=== PATIENT | male | born 1980 | race Caucasian/White ===

== ENCOUNTER 2021-04-22 15:45 | Emergency (ER) | payer MEDICAID, OTHER ==
[2021-04-22 16:29] LABS: RAPID STREP SCREEN Negative (Negative)
--- NOTE | 2021-04-22 17:08 | ED Physician Documentation ---
History of Present Illness - Stated complaint Stated Complaint: SORE THROAT/CONGESTION - Chief complaint Chief Complaint: Heent - History obtained from History obtained from: Patient - Additonal information Additional information: Patient comes emergency department chief complaint of sore throat for the last week. He states his tonsils had felt large and he has also had swollen lymph nodes in his neck. He is also noted a few white patches on his tonsils. Patient has not had any specific sick contacts. He denies any nasal congestion or abdominal pain. No vomiting or diarrhea. He is vaccinated for COVID fully, though he has not had a booster. No other complaints at this time. He does admit to having mono as a child. Review of Systems Ten Systems: 10 systems reviewed and negative Constitutional: reports: Reviewed and negative Eyes: reports: Reviewed and negative Ears: reports: Reviewed and negative Nose: reports: Reviewed and negative Throat: reports: Sore throat, Swollen tonsils Cardiac: reports: Reviewed and negative Respiratory: reports: Reviewed and negative GI: reports: Reviewed and negative : reports: Reviewed and negative Skin: reports: Reviewed and negative Musculoskeletal: reports: Reviewed and negative Neurologic: reports: Reviewed and negative Psychiatric: reports: Reviewed and negative Endocrine: reports: Reviewed and negative Immunocompromised: reports: Reviewed and negative PD PAST MEDICAL HISTORY - Present Medications Home Medications: Ambulatory Orders Medication Instructions Recorded Confirmed Amoxicillin 500 mg PO TID 7 Days #21 cap 04/22/21 - Allergies Allergies/Adverse Reactions: Allergies Allergy/AdvReac Type Severity Reaction Status Date / Time No Known Drug Allergies Allergy Verified 04/22/21 16:14 PD ED PE NORMAL - Vitals Vital signs reviewed: Yes - General General: Alert and oriented X 3, No acute distress, Well developed/nourished - HEENT HEENT: Atraumatic, PERRL, EOMI, Moist mucous membranes, Other (4+, erythematous tonsils with exudates, especially on left side. Throat is symmetrical.) - Neck Neck: Other (Moderate bilateral anterior cervical lymphadenopathy.) - Cardiac Cardiac: RRR, No murmur - Respiratory Respiratory: No respiratory distress, Clear bilaterally - Abdomen Abdomen: Soft, Non tender, Non distended - Derm Derm: Normal color, Warm and dry, No rash - Extremities Extremities: No deformity, No edema - Neuro Neuro: Alert and oriented X 3, systems technician 2-12 intact, Normal speech, Other (Grossly intact) - Psych Psych: Normal mood, Normal affect Results - Vitals Vitals: Vital Signs - 24 hr 04/22/21 04/22/21 16:10 17:33 Temperature 37.9 C 37.2 C Heart Rate 98 90 Respiratory 16 16 Rate Blood Pressure 140/85 H 128/82 H O2 Saturation 100 100 Oxygen O2 Source Room air - Labs Labs: Laboratory Tests 04/22/21 16:16 Group A Strep Rapid Negative PD MEDICAL DECISION MAKING - ED course Complexity details: reviewed results, re-evaluated patient, considered differential, d/w patient ED course: Strep test was obtained which was negative. Wright was obtained and pending at this time. We have discussed symptomatic management. The pt will monitor his mono results from home. If negative, he will fill the prescription for abx for tonsillitis. We have discussed the usual indications for return. Departure - Departure Disposition: 01 Home, Self Care Clinical Impression: Tonsillitis Pharyngitis Qualifiers: Pharyngitis/tonsillitis etiology: unspecified etiology Qualified Code(s): J02.9 - Acute pharyngitis, unspecified Condition: Stable Instructions: ED Pharyngitis Viral Report Pending, ED Tonsillitis Prescriptions: Amoxicillin 500 mg PO TID 7 Days #21 cap Comments: Your strep test is negative. Given your symptoms, you most likely have either a bacterial tonsillitis with another strain of strep, or possibly infectious mononucleosis, or "mono". It is possible that you have another viral throat infection, but these 2 diagnoses are most likely. At this point in time, you have a monotest pending, and this will be back most likely in a couple of hours. A prescription for antibiotics has been electronically transmitted to the pharmacy of your choice, [facility] in [place], but at this point in time, the you should wait to fill it until we know what your monotest shows. You may go to the hospital website at [email or web address] and sign up for the patient portal under "my [employer]" tab. In this way, you will be able to monitor your test results. If your mono test is negative, you should potato picker the prescription at the pharmacy. If it is positive, then the prescription for antibiotics will not be helpful, and you may just continue to treat symptoms at home, and the symptoms will resolve on their own ultimately. Discharge Date/Time: 04/22/21 17:33
[2021-04-22 17:34] VITALS: BP 128/82
== END 2021-04-22 17:33 | disposition home or self-care (01) ==
LOC: ED 15:45
DX: J03.90 Acute tonsillitis, unspecified (principal)
CPT/HCPCS: 86308; 87070; 87430; 99283